=== PATIENT | female | born 2000 | race Caucasian/White ===

== ENCOUNTER 2023-06-15 09:37 | Outpatient (CLI) | payer OTHER, SELFPAY | END 2023-06-15 09:38 | disposition home or self-care (01) | LOC: NFLDREF 06-17 06:56 | PROVIDERS: PCP Physician Assistant Medical; Referring Provider Physician Assistant Medical; Visit Provider Physician Assistant Medical | DX: Z00.00 Encounter for general adult medical examination without abnormal findings (principal); R51.9 Headache, unspecified; F41.1 Generalized anxiety disorder; Z11.3 Encounter for screening for infections with a predominantly sexual mode of transmission | CPT/HCPCS: 82306; 82607; 82728; 84443; 87491; 87591 ==